=== PATIENT | male | born 1955 | race Caucasian/White ===

== ENCOUNTER 2019-09-15 12:51 | Observation (INO) | payer BC ==
[2019-09-15] MEDS ORDERED: Sodium Chloride 0.9% 500 ML IV SCH (13:00)
[2019-09-15] MEDS ORDERED: Sodium Chloride 0.9% 10 ML SDV IV PRN ×2 (13:00→16:02)
[2019-09-15] MEDS ORDERED: Sodium Chloride 0.9% 10 ML Syringe FLUSH PRN (13:00)
[2019-09-15] MEDS ORDERED: Sodium Chloride 0.9% 2.5 ML Syringe FLUSH PRN ×2 (13:00→16:00)
--- NOTE | 2019-09-15 13:07 | EDM.PDOC ---
ED HPI GENERAL MEDICAL PROBLEM - General Chief Complaint: Neuro Symptoms/Deficits Stated Complaint: FUZZY VISION IN RT EYE, UNABLE TO REMEBER NAMES Time Seen by Provider: 09/15/19 12:59 - History of Present Illness INITIAL COMMENTS - FREE TEXT/NARRATIVE: History of present illness: 64-year-old male presenting with memory finding difficulties since around 11:30 AM. The patient reports he was at [employer] and he was feeling fine, when around 1130 or so he noticed a blurring/abnormal visual appearance in the right upper corner of his visual tao. He noticed it got better when he closed his right eye and his vision was normal on the left eye. However when he closed his left eye he did notice the blurred vision on the right side when looking out of his right eye. He also realized that he could not remember some important facts, including his and son's names. He knows what day it is, he knew he was at [employer], and he did not notice any difficulty forming words, difficulty moving arms or legs or standing and walking, nor any numbness or tingling in any extremity or in his face. No difficulty breathing or chest pain. Report that he had a CT scan sometime in the last week or 2 as ordered by his primary care physician, however he cannot recall why although he thinks there was some kind of neurologic type symptom as it was a CT brain. Feels that he is mostly but not completely back to normal. Still has some difficulty with remembering people's names. After discussion with his here, she reports that about a week ago he had an abnormal numbness sensation which is why his physician performed a CT scan. Review of systems: As per history of present illness and below otherwise all systems reviewed and negative. Past medical history: As per history of present illness and as reviewed below otherwise noncontributory. Surgical history: As per history of present illness and as reviewed below otherwise noncontributory. Social history: No reported history of drug or alcohol abuse. Family history: As per history of present illness and as reviewed below otherwise noncontributory. Physical exam: GEN: no acute distress, well appearing HEENT: Atraumatic, normocephalic, mucous membranes moist, Neck: supple, nontender, trachea midline. Lungs: No respiratory distress. Heart: RRR Abdomen: Soft, nondistended, nontender. Back: nontender Extremities: Atraumatic. Neurovascularly intact. Neuro: Awake, alert, oriented. Neuro Exam nonfocal. Able to move all extremities without difficulty. No drift in all 4 extremities. No difficulty forming words. No dysarthria or aphasia. Orientation x3. Patient does notice some difficulty with memory, including that he remembers having a CT but cannot recall for what. However he is able to recall his and children's names, which he had trouble recalling before. No ataxia. NIH stroke scale equals 0. Skin: warm, dry, no lesions Psych: Normal mood and affect, no anxiety or depression Diagnostics: [] Therapeutics: [] MDM: Stroke code initiated on exam however based on patient's current symptoms and current stroke scale of 0, TPA would not be indicated at this time. CT brain with no acute findings. Lab work largely unremarkable. Suspect TIA and this is this patient's second episode in the last 2 to 3 weeks. Recommended admission/observation for further TIA work-up/stroke risk stratification. Aspirin given here. Discussed with hospitalist, Dr. Miner who agrees and accepts patient for admission. Impression: [] Plan: [] Definitive disposition and diagnosis as appropriate pending reevaluation and review of above. - Related Data Allergies Allergy/AdvReac Type Severity Reaction Status Date / Time No Known Allergies Allergy Verified 09/15/19 15:43 Home Meds: Home Meds . [No Known Home Meds] 02/05/15 [History] Past Medical History Other Cardiovascular History: Hypertriglyceridemia Other Musculoskeletal History: hx: fractured wrists ED ROS GENERAL - Review of Systems Review Of Systems: See Below (See dictation) ED EXAM, NEURO - Physical Exam Exam: See Below (See dictation) *Q Meaningful Use (ADM) - VTE Risk Assess *Q Each Risk Factor Represents 1 Point: None Total Score 1 Point Risk Factors: 0 Each Risk Factor Represents 2 Points: Age 60 - 74 Years Total Score 2 Point Risk Factors: 2 Course - Vital Signs Last Recorded V/S: Last Vital Signs Temp 98.3 F 09/15/19 16:06 Pulse 61 09/15/19 16:06 Resp 16 09/15/19 16:06 BP 168/85 H 09/15/19 16:06 Pulse Ox 98 09/15/19 16:06 - Orders/Labs/Meds Orders: Active Orders 24 hr Category Date Time Status Assess Neurological Status [RC] CONTINUOUS Care 09/15/19 13:00 Inactive Cardiac Monitoring [RC] CONTINUOUS Care 09/15/19 13:00 Inactive Communication Order [RC] STAT Care 09/15/19 13:00 Inactive Height and Weight [RC] UPON Care 09/15/19 13:00 Inactive NIH Stroke Scale [RC] Q15M Care 09/15/19 13:00 Inactive Nursing Bedside Swallow Screen [RC] STAT Care 09/15/19 13:00 Inactive Oxygen Therapy, ED [RC] ASDIRECTED Care 09/15/19 13:00 Inactive Resuscitation Status Stat Resus Stat 09/15/19 13:00 Ordered Medication Orders Sodium Chloride (Saline Flush) 2.5 ml FLUSH ASDIRECTED PRN PRN Reason: Keep Vein Open Sodium Chloride (Normal Saline) 10 ml IV ASDIRECTED PRN PRN Reason: IV Use Labs: Laboratory Tests 09/15/19 09/15/19 09/15/19 Range/Units 12:57 12:57 12:57 WBC 7.42 (4.0-11.0) K/uL RBC 6.27 H (4.50-5.90) M/uL Hgb 19.2 H (13.0-17.0) g/dL Hct 54.9 H (38.0-50.0) % MCV 87.6 (80.0-98.0) fL MCH 30.6 (27.0-32.0) pg MCHC 35.0 (31.0-37.0) g/dL RDW Std Deviation 43.7 (28.0-62.0) fl RDW Coeff of Fabienne 14 (11.0-15.0) % Plt Count 229 (150-400) K/uL MPV 9.10 (7.40-12.00) fL Neut % (Auto) 63.0 (48.0-80.0) % Lymph % (Auto) 25.3 (16.0-40.0) % Moore % (Auto) 8.6 (0.0-15.0) % Eos % (Auto) 2.7 (0.0-7.0) % Baso % (Auto) 0.4 (0.0-1.5) % Neut # (Auto) 4.7 (1.4-5.7) K/uL Lymph # (Auto) 1.9 (0.6-2.4) K/uL Moore # (Auto) 0.6 (0.0-0.8) K/uL Eos # (Auto) 0.2 (0.0-0.7) K/uL Baso # (Auto) 0.0 (0.0-0.1) K/uL Nucleated RBC % 0.0 /100WBC Nucleated RBCs # 0 K/uL INR 0.97 APTT 27.7 (18.6-31.3) SEC Sodium 139 (136-148) mmol/L Potassium 4.6 (3.5-5.1) mmol/L Chloride 101 (98-107) mmol/L Carbon Dioxide 30.0 (21.0-32.0) mmol/L BUN 15 (7.0-18.0) mg/dL Creatinine 1.3 (0.8-1.3) mg/dL Est Cr Clr Drug Dosing 57.41 mL/min Estimated GFR (MDRD) 55.6 ml/min Glucose 98 (74-106) mg/dL POC Glucose (60-110) mg/dL Calcium 9.5 (8.5-10.1) mg/dL Total Bilirubin 0.5 (0.2-1.0) mg/dL AST 19 (15-37) IU/L ALT 38 (14-63) IU/L Alkaline Phosphatase 71 (46-116) U/L Troponin I < 0.050 (0.000-0.056) ng/mL Total Protein 7.4 (6.4-8.2) g/dL Albumin 4.2 (3.4-5.0) g/dL Globulin 3.2 (2.6-4.0) g/dL Albumin/Globulin Ratio 1.3 (0.9-1.6) 09/15/19 Range/Units 12:59 WBC (4.0-11.0) K/uL RBC (4.50-5.90) M/uL Hgb (13.0-17.0) g/dL Hct (38.0-50.0) % MCV (80.0-98.0) fL MCH (27.0-32.0) pg MCHC (31.0-37.0) g/dL RDW Std Deviation (28.0-62.0) fl RDW Coeff of Fabienne (11.0-15.0) % Plt Count (150-400) K/uL MPV (7.40-12.00) fL Neut % (Auto) (48.0-80.0) % Lymph % (Auto) (16.0-40.0) % Moore % (Auto) (0.0-15.0) % Eos % (Auto) (0.0-7.0) % Baso % (Auto) (0.0-1.5) % Neut # (Auto) (1.4-5.7) K/uL Lymph # (Auto) (0.6-2.4) K/uL Moore # (Auto) (0.0-0.8) K/uL Eos # (Auto) (0.0-0.7) K/uL Baso # (Auto) (0.0-0.1) K/uL Nucleated RBC % /100WBC Nucleated RBCs # K/uL INR APTT (18.6-31.3) SEC Sodium (136-148) mmol/L Potassium (3.5-5.1) mmol/L Chloride (98-107) mmol/L Carbon Dioxide (21.0-32.0) mmol/L BUN (7.0-18.0) mg/dL Creatinine (0.8-1.3) mg/dL Est Cr Clr Drug Dosing mL/min Estimated GFR (MDRD) ml/min Glucose (74-106) mg/dL POC Glucose 90 (60-110) mg/dL Calcium (8.5-10.1) mg/dL Total Bilirubin (0.2-1.0) mg/dL AST (15-37) IU/L ALT (14-63) IU/L Alkaline Phosphatase (46-116) U/L Troponin I (0.000-0.056) ng/mL Total Protein (6.4-8.2) g/dL Albumin (3.4-5.0) g/dL Globulin (2.6-4.0) g/dL Albumin/Globulin Ratio (0.9-1.6) Meds: Medications Generic Name Dose Route Start Last Admin Trade Name Freq PRN Reason Stop Dose Admin Sodium Chloride 2.5 ml 09/15/19 16:00 Saline Flush FLUSH ASDIRECTED PRN Keep Vein Open Sodium Chloride 10 ml 09/15/19 16:02 Normal Saline IV ASDIRECTED PRN IV Use Discontinued Medications Generic Name Dose Route Start Last Admin Trade Name Vamsi BRADLEY Reason Stop Dose Admin Aspirin 324 mg 09/15/19 14:53 09/15/19 15:36 Aspirin PO 09/15/19 14:54 324 mg ONETIME ONE Administration Sodium Chloride 500 mls @ 250 mls/hr 09/15/19 13:00 09/15/19 13:09 Normal Saline IV 250 mls/hr BOLUS SANDOR Administration Sodium Chloride 10 ml 09/15/19 13:00 09/15/19 13:09 Saline Flush FLUSH 10 ml ASDIRECTED PRN Administration Keep Vein Open Sodium Chloride 2.5 ml 09/15/19 13:00 09/15/19 13:09 Saline Flush FLUSH 2.5 ml ASDIRECTED PRN Administration Keep Vein Open Sodium Chloride 10 ml 09/15/19 13:00 09/15/19 13:09 Normal Saline IV 10 ml ASDIRECTED PRN Administration IV Use - Re-Assessments/Exams Free Text/Narrative Re-Assessment/Exam: 09/15/19 13:15 When I reevaluated the patient about 1:15 PM, he reported that he felt like he could now remember names and was not having any difficulty speaking. The visual blurriness lasted only transiently around 1130 and has not recurred since. His symptoms are essentially resolved at this time. I discussed with the patient recommendation for admission to the hospital for further work-up including evaluation for likely TIAs as this is a second event in the last 2 to 3 weeks. He agrees with this plan. 09/15/19 15:00 DR Miner called back, case was discussed and he agrees and accepts the patient for admission. Will place in observation. Departure - Departure Time of Disposition: 14:59 Disposition: Refer to Observation Clinical Impression: TIA (transient ischemic attack) - Discharge Information Sepsis Event Note (ED) - Focused Exam Vital Signs: Vital Signs Temp Pulse Resp BP Pulse Ox 09/15/19 14:45 61 16 155/99 H 98 09/15/19 14:30 61 16 156/97 H 98 09/15/19 14:15 64 158/101 H 94 L 09/15/19 14:00 59 L 18 153/91 H 96 09/15/19 13:45 59 L 16 160/97 H 96 09/15/19 13:30 64 16 155/90 H 98 09/15/19 13:15 97.2 F 62 16 153/84 H 95 09/15/19 13:00 66 18 167/101 H 96 - My Orders Last 24 Hours: My Active Orders 09/15/19 13:00 Assess Neurological Status [RC] CONTINUOUS Cardiac Monitoring [RC] CONTINUOUS Communication Order [RC] STAT Height and Weight [RC] UPON NIH Stroke Scale [RC] Q15M Nursing Bedside Swallow Screen [RC] STAT Oxygen Therapy, ED [RC] ASDIRECTED Resuscitation Status Stat - Assessment/Plan Last 24 Hours: My Active Orders 09/15/19 13:00 Assess Neurological Status [RC] CONTINUOUS Cardiac Monitoring [RC] CONTINUOUS Communication Order [RC] STAT Height and Weight [RC] UPON NIH Stroke Scale [RC] Q15M Nursing Bedside Swallow Screen [RC] STAT Oxygen Therapy, ED [RC] ASDIRECTED Resuscitation Status Stat
--- NOTE | 2019-09-15 13:30 | CT ---
Head CT Technique: Multiple axial sections through the brain were obtained. Intravenous contrast was not utilized. Comparison: Prior noncontrast head CT study of 09/10/19. Findings: Ventricles along with basal cisterns and sulci over the convexities are within normal limits for the patient's age. No abnormal parenchymal densities are seen. No evidence of intracranial hemorrhage. No midline shift or mass effect is seen. Bone window settings were reviewed. No acute calvarial abnormality is appreciated. Visualized paranasal sinuses and mastoid sinuses show nothing acute. Impression: 1. No abnormality is identified on noncontrast head CT study. Note: Consider MRI to further evaluate. Diagnostic code #1 This report was dictated in MDT
[2019-09-15 13:31] LABS: BLOOD UREA NITROGEN,BUN 15 mg/dL (7.0-18.0); CHLORIDE,CL 101 mmol/L (98-107); GLUCOSE RANDOM 98 mg/dL (74-106); POTASSIUM,K 4.6 mmol/L (3.5-5.1); SODIUM,NA 139 mmol/L (136-148)
[2019-09-15] MEDS ORDERED: Aspirin 81 MG Tab.Chew PO ONE (14:53)
--- NOTE | 2019-09-15 22:28 | PCM.HP.2 ---
H&P History of Present Illness - General Date of Service: 09/15/19 Admit Problem/Dx: Admission Diagnosis/Problem Admission Diagnosis/Problem TIA, Transient ischemic attack - History of Present Illness Initial Comments - Free Text/Narative: 64 yo male who no significant past medical history who while at [employer] he was not able to recall names of people. He had no other memory problems. He was unable to recall his wifes name although he new who she was. This last the [employer] service. He had no slurred speech, facial droop or muscle weakness. Patient reports three weeks ago havign several minute episode of dizziness where he felt he was leaning to the right. In the ED he had a CT scan which did not show any acute findings. - Related Data Allergies/Adverse Reactions: Allergies Allergy/AdvReac Type Severity Reaction Status Date / Time No Known Allergies Allergy Verified 09/15/19 15:43 Home Medications: Home Meds Aspirin 81 mg PO DAILY #30 tab.chew 09/16/19 [Rx] atorvaSTATin [Lipitor] 40 mg PO BEDTIME #30 tablet 09/16/19 [Rx] Past Medical History - Past Health History Medical/Surgical History: Denies Medical/Surgical History HEENT History: Reports: Impaired Vision Other Cardiovascular History: Hypertriglyceridemia Other Musculoskeletal History: hx: fractured wrists - Infectious Disease History Infectious Disease History: Reports: None - Past Surgical History HEENT Surgical History: Reports: None Cardiovascular Surgical History: Reports: None GI Surgical History: Reports: Appendectomy Social & Family History - Family History Family Medical History: Noncontributory - Tobacco Use Smoking Status *Q: Never Smoker - Caffeine Use Caffeine Use: Reports: Coffee, Soda - Recreational Drug Use Recreational Drug Use: No H&P Review of Systems - Review of Systems: Review Of Systems: See Below Exam - Exam Exam: See Below - Vital Signs Vital Signs: Last Vital Signs Temp 36.5 C 09/15/19 19:25 Pulse 62 09/15/19 19:25 Resp 16 09/15/19 19:25 BP 146/82 H 09/15/19 19:25 Pulse Ox 97 09/15/19 19:25 Weight: 79.515 kg - Exam General: Alert, Oriented HEENT: Mucosa Moist & [place] Neck: Supple, Trachea Midline Lungs: Clear to Auscultation, Normal Respiratory Effort Cardiovascular: Regular Rate, Regular Rhythm GI/Abdominal Exam: Normal Bowel Sounds, Soft, Non-Tender Extremities: Normal Inspection, Normal Range of Motion, Non-Tender, No Pedal Edema Skin: Warm, Dry, Intact Neurological: Cranial Nerves Intact, Reflexes Equal Bilateral, Strength Equal Bilateral, Normal Gait, Normal Speech, Normal Tone, Sensation Intact Psychiatric: Alert, Normal Affect, Normal Mood - Patient Data Lab Results Last 24 hrs: Laboratory Results - last 24 hr 09/15/19 09/15/19 09/15/19 Range/Units 12:57 12:57 12:57 WBC 7.42 (4.0-11.0) K/uL RBC 6.27 H (4.50-5.90) M/uL Hgb 19.2 H (13.0-17.0) g/dL Hct 54.9 H (38.0-50.0) % MCV 87.6 (80.0-98.0) fL MCH 30.6 (27.0-32.0) pg MCHC 35.0 (31.0-37.0) g/dL RDW Std Deviation 43.7 (28.0-62.0) fl RDW Coeff of Fabienne 14 (11.0-15.0) % Plt Count 229 (150-400) K/uL MPV 9.10 (7.40-12.00) fL Neut % (Auto) 63.0 (48.0-80.0) % Lymph % (Auto) 25.3 (16.0-40.0) % [place]iwether % (Auto) 8.6 (0.0-15.0) % Eos % (Auto) 2.7 (0.0-7.0) % Baso % (Auto) 0.4 (0.0-1.5) % Neut # (Auto) 4.7 (1.4-5.7) K/uL Lymph # (Auto) 1.9 (0.6-2.4) K/uL [place]ether # (Auto) 0.6 (0.0-0.8) K/uL Eos # (Auto) 0.2 (0.0-0.7) K/uL Baso # (Auto) 0.0 (0.0-0.1) K/uL Nucleated RBC % 0.0 /100WBC Nucleated RBCs # 0 K/uL INR 0.97 APTT 27.7 (18.6-31.3) SEC Sodium 139 (136-148) mmol/L Potassium 4.6 (3.5-5.1) mmol/L Chloride 101 (98-107) mmol/L Carbon Dioxide 30.0 (21.0-32.0) mmol/L BUN 15 (7.0-18.0) mg/dL Creatinine 1.3 (0.8-1.3) mg/dL Est Cr Clr Drug Dosing 57.41 mL/min Estimated GFR (MDRD) 55.6 ml/min Glucose 98 (74-106) mg/dL POC Glucose (60-110) mg/dL Calcium 9.5 (8.5-10.1) mg/dL Total Bilirubin 0.5 (0.2-1.0) mg/dL AST 19 (15-37) IU/L ALT 38 (14-63) IU/L Alkaline Phosphatase 71 (46-116) U/L Troponin I < 0.050 (0.000-0.056) ng/mL Total Protein 7.4 (6.4-8.2) g/dL Albumin 4.2 (3.4-5.0) g/dL Globulin 3.2 (2.6-4.0) g/dL Albumin/Globulin Ratio 1.3 (0.9-1.6) 09/15/19 Range/Units 12:59 WBC (4.0-11.0) K/uL RBC (4.50-5.90) M/uL Hgb (13.0-17.0) g/dL Hct (38.0-50.0) % MCV (80.0-98.0) fL MCH (27.0-32.0) pg MCHC (31.0-37.0) g/dL RDW Std Deviation (28.0-62.0) fl RDW Coeff of Fabienne (11.0-15.0) % Plt Count (150-400) K/uL MPV (7.40-12.00) fL Neut % (Auto) (48.0-80.0) % Lymph % (Auto) (16.0-40.0) % [place]iwether % (Auto) (0.0-15.0) % Eos % (Auto) (0.0-7.0) % Baso % (Auto) (0.0-1.5) % Neut # (Auto) (1.4-5.7) K/uL Lymph # (Auto) (0.6-2.4) K/uL [place]iwether # (Auto) (0.0-0.8) K/uL Eos # (Auto) (0.0-0.7) K/uL Baso # (Auto) (0.0-0.1) K/uL Nucleated RBC % /100WBC Nucleated RBCs # K/uL INR APTT (18.6-31.3) SEC Sodium (136-148) mmol/L Potassium (3.5-5.1) mmol/L Chloride (98-107) mmol/L Carbon Dioxide (21.0-32.0) mmol/L BUN (7.0-18.0) mg/dL Creatinine (0.8-1.3) mg/dL Est Cr Clr Drug Dosing mL/min Estimated GFR (MDRD) ml/min Glucose (74-106) mg/dL POC Glucose 90 (60-110) mg/dL Calcium (8.5-10.1) mg/dL Total Bilirubin (0.2-1.0) mg/dL AST (15-37) IU/L ALT (14-63) IU/L Alkaline Phosphatase (46-116) U/L Troponin I (0.000-0.056) ng/mL Total Protein (6.4-8.2) g/dL Albumin (3.4-5.0) g/dL Globulin (2.6-4.0) g/dL Albumin/Globulin Ratio (0.9-1.6) Result Diagrams: 09/16/19 05:55 09/16/19 05:55 Sepsis Event Note - Evaluation Sepsis Screening Result: No Definite Risk - Focused Exam Vital Signs: Vital Signs Temp Pulse Resp BP Pulse Ox 09/15/19 19:25 36.5 C 62 16 146/82 H 97 09/15/19 16:06 36.8 C 61 16 168/85 H 98 09/15/19 14:45 61 16 155/99 H 98 09/15/19 14:30 61 16 156/97 H 98 09/15/19 14:15 64 158/101 H 94 L 09/15/19 14:00 59 L 18 153/91 H 96 09/15/19 13:45 59 L 16 160/97 H 96 09/15/19 13:30 64 16 155/90 H 98 09/15/19 13:15 36.2 C 62 16 153/84 H 95 09/15/19 13:00 66 18 167/101 H 96 Date Exam was Performed: 09/16/19 Time Exam was Performed: 20:01 *Q Meaningful Use (ADM) - VTE *Q VTE Mechanical Contraindications *Q: At Risk for Falls Problem List Initiated/Reviewed/Updated: Yes Orders Last 24hrs: Active Orders 24 hr Category Date Time Status Admission Status [Patient Status] [ADT] Stat ADT 09/15/19 14:54 Active Assess Neurological Status [RC] CONTINUOUS Care 09/15/19 13:00 Inactive Cardiac Monitoring [RC] CONTINUOUS Care 09/15/19 13:00 Inactive Communication Order [RC] STAT Care 09/15/19 13:00 Inactive Height and Weight [RC] UPON Care 09/15/19 13:00 Inactive Intake and Output [RC] Q12H Care 09/16/19 04:00 Active NIH Stroke Scale [RC] Q15M Care 09/15/19 13:00 Inactive NIH Stroke Scale [RC] Q4H Care 09/15/19 20:00 Active Nursing Bedside Swallow Screen [RC] STAT Care 09/15/19 13:00 Inactive Oxygen Therapy, ED [RC] ASDIRECTED Care 09/15/19 13:00 Inactive Telemetry Monitoring [Cardiac Monitoring] [RC] . Care 09/15/19 15:59 Active DIRECTED Vital Signs [RC] Q4H Care 09/15/19 16:00 Active Regular Diet [DIET] Diet 09/15/19 Dinner Active Ang Head wo Cont [MR] Routine Exams 09/15/19 22:15 Ordered Brain w wo Cont [MR] Routine Exams 09/15/19 22:15 Ordered Echo Comp wo Cont [US] Routine Exams 09/15/19 22:15 Ordered MRA Neck Without Contrast [Ang Neck wo Cont] [MR] Exams 09/15/19 22:15 Ordered Routine BASIC METABOLIC PANEL,BMP [CHEM] AM Lab 09/16/19 05:11 Ordered CBC WITH AUTO DIFF [HEME] AM Lab 09/16/19 05:11 Ordered GLYCOSYLATED HEMOGLOBIN,HGBA1C [CHEM] AM Lab 09/16/19 05:11 Ordered LIPID PANEL [CHEM] AM Lab 09/16/19 05:11 Ordered Sodium Chloride 0.9% [Normal Saline] Med 09/15/19 16:02 Active 10 ml IV ASDIRECTED PRN Sodium Chloride 0.9% [Saline Flush] Med 09/15/19 16:00 Active 2.5 ml FLUSH ASDIRECTED PRN Peripheral IV Insertion Adult [OM.PC] Routine Oth 09/15/19 16:02 Ordered Saline Lock Insert [OM.PC] Routine Oth 09/15/19 16:00 Ordered Resuscitation Status Stat Resus Stat 09/15/19 13:00 Ordered Medication Orders Sodium Chloride (Saline Flush) 2.5 ml FLUSH ASDIRECTED PRN PRN Reason: Keep Vein Open Sodium Chloride (Normal Saline) 10 ml IV ASDIRECTED PRN PRN Reason: IV Use Assessment/Plan Comment:: 64 yo male admitted due to concerns of TIA. We will monitor overnight on telemetry. MRI/MRA of brain ordered.
[2019-09-16 06:41] LABS: HEMOGLOBIN A1C 5.2 % (4.5-6.2)
[2019-09-16 06:47] LABS: BLOOD UREA NITROGEN,BUN 14 mg/dL (7.0-18.0); CARBON DIOXIDE,CO2 30.3 mmol/L (21.0-32.0); CHLORIDE,CL 103 mmol/L (98-107); GLUCOSE RANDOM 97 mg/dL (74-106); POTASSIUM,K 4.8 mmol/L (3.5-5.1); SODIUM,NA 140 mmol/L (136-148)
[2019-09-16] MEDS ORDERED: Gadobenate Dimeglumine 529 MG/ML 20 ML SDV IVPUSH STA (08:12)
--- NOTE | 2019-09-16 09:17 | MR ---
MRI brain (without and with intravenous contrast) Comparison: Prior head CT studies of 09/15/19 and 09/10/19. Findings: Ventricles along with basal cisterns and sulci over the convexities appear within normal limits for the patient's age. Several minimal areas of increased signal noted within the subcortical white matter. No other abnormal signal is seen within the brain parenchyma. No acute diffusion abnormalities are appreciated. No abnormal enhancement is seen within the brain parenchyma. Impression: 1. Several minimal areas of increased signal within the subcortical white matter believed to be within normal limits for the patient's age. 2. No additional abnormality is appreciated on MRI study of the brain. No acute diffusion abnormalities or abnormal enhancement is seen. Diagnostic code #2 Study was dictated in MDT
--- NOTE | 2019-09-16 09:37 | MR ---
MR angiogram of brain Technique: [id number] MRA angiogram study was obtained centered to the [place]. Multiple MIP images were obtained in multiple projections. Comparison: No prior intracranial vascular imaging is available. Findings: Distal vertebral arteries and basilar artery appear patent. Distal internal carotid arteries are patent. Anterior, middle and posterior cerebral arteries are patent. No focal areas of stenosis or occlusion are seen. No discrete aneurysm is noted. Impression: 1. No abnormality is identified on MR angiogram study of the brain centered to the [place]. Diagnostic code #1 Study was dictated in MDT
--- NOTE | 2019-09-16 09:37 | MR ---
MR angiogram of neck Technique: Phase contrast MR angiogram study was obtained to the neck. Intravenous contrast was then given and multiple minute images then obtained of the neck vessels. Findings: Common carotid arteries are well seen and show no focal stenosis. Both vertebral arteries are patent into the basilar artery. Internal carotid arteries are patent into the middle and anterior cerebral arteries. Proximal external carotid arteries are patent. Brachiocephalic and subclavian arteries are patent. Impression: 1. No abnormality is identified on MR angiogram study of the neck. No hemodynamic significant stenosis is seen. Diagnostic code #1 This report was dictated in MDT
[2019-09-16] MEDS ORDERED: Aspirin 81 MG Tab.Chew PO SCH (10:00)
[2019-09-16 10:03] VITALS: BP 143/90; PULSE 73
--- NOTE | 2019-09-16 12:11 | PCM.DCSUM1 ---
Discharge Summary - Hospital Course Brief History: 64 yo male who no significant past medical history who while at [employer] he was not able to recall names of people. He had no other memory problems. He was unable to recall his wifes name although he new who she was. This last the [employer] service. He had no slurred speech, facial droop or muscle weakness. Patient reports three weeks ago havign several minute episode of dizziness where he felt he was leaning to the right. In the ED he had a CT scan which did not show any acute findings. Diagnosis: Stroke: No - Discharge Data Discharge Date: 09/16/19 Discharge Disposition: Home, Self-Care 01 Condition: Good - Referral to Home Health Primary Care Physician: Palomo Stewart MD - Discharge Diagnosis/Problem(s) (1) TIA (transient ischemic attack) SNOMED Code(s): 639016892 ICD Code: G45.9 - TRANSIENT CEREBRAL ISCHEMIC ATTACK, UNSPECIFIED Status: Acute - Patient Summary/Data Hospital Course: Admission diagnoses: TIA Discharge Diagnoses: TIA Larry was admitted secondary to concern for TIA. MRI head and MRA head and neck obtained, which were negative. A1c WNL, lipid panel revealed LDL 107, Total cholesterol 175, HDL 32 and Triglycerides 179. He was treated with ASA and monitored on telemetry. No acute ischemic changes or arrhythmias noted during observation. ECHO pending. He will be started on ASA daily along with Atorvastatin 40 mg daily. He was counseled on statin therapy and side effects to monitor for. He will be sent home with ZIO patch for arrhythmia monitoring. he will have follow up with PCP as well as Dr Méndez was outpatient. he is to return to ED or clinic if concerns should arise. Counseled on Heart healthy/ DASH diet. He was counseled to monitor BP at home and return if symptoms return. - Patient Instructions Diet: Heart Healthy Diet Activity: As Tolerated, No Strenuous Activities Showering/Bathing: May Shower Notify Provider of: Fever, Increased Pain, Swelling and Redness, Drainage, Nausea and/or Vomiting Other/Special Instructions: Monitor blood pressure at home every few days. Keep log and bring to Dr Stewart appointment as well as Neurology. - Discharge Plan *PRESCRIPTION DRUG MONITORING PROGRAM REVIEWED*: Not Applicable *COPY OF PRESCRIPTION DRUG MONITORING REPORT IN PATIENT DONAVAN: Not Applicable Prescriptions/Med Rec: Aspirin 81 mg PO DAILY #30 tab.chew atorvaSTATin [Lipitor] 40 mg PO BEDTIME #30 tablet Home Medications: Home Meds Aspirin 81 mg PO DAILY #30 tab.chew 09/16/19 [Rx] atorvaSTATin [Lipitor] 40 mg PO BEDTIME #30 tablet 09/16/19 [Rx] Oxygen Therapy Mode: Room Air Patient Handouts: Transient Ischemic Attack, [id number], Atorvastatin tablets , Aspirin, ASA oral tablets Referrals: Yumiko Méndez MD [Physician] - 10/01/19 3:00 pm (Arrive 15 minutes early with a photo ID, insurance card, and a mask if you have one. ) Palomo Stewart MD [Primary Care Provider] - 09/23/19 1:30 pm (Arrive 15 minutes early with a photo ID, insurance card and a mask if you have one) - Discharge Summary/Plan Comment DC Time >30 min.: No - Patient Data Vitals - Most Recent: Last Vital Signs Temp 97.5 F 09/16/19 09:15 Pulse 73 09/16/19 09:15 Resp 18 09/16/19 09:15 BP 143/90 H 09/16/19 09:15 Pulse Ox 97 09/16/19 09:15 Weight - Most Recent: 79.515 kg I&O - Last 24 hours: Intake & Output 09/15/19 09/16/19 09/16/19 22:59 06:59 14:59 Intake Total 800 Output Total 1300 Balance -500 Lab Results - Last 24 hrs: Laboratory Results - last 24 hr 09/15/19 09/15/19 09/15/19 Range/Units 12:57 12:57 12:57 WBC 7.42 (4.0-11.0) K/uL RBC 6.27 H (4.50-5.90) M/uL Hgb 19.2 H (13.0-17.0) g/dL Hct 54.9 H (38.0-50.0) % MCV 87.6 (80.0-98.0) fL MCH 30.6 (27.0-32.0) pg MCHC 35.0 (31.0-37.0) g/dL RDW Std Deviation 43.7 (28.0-62.0) fl RDW Coeff of Fabienne 14 (11.0-15.0) % Plt Count 229 (150-400) K/uL MPV 9.10 (7.40-12.00) fL Neut % (Auto) 63.0 (48.0-80.0) % Lymph % (Auto) 25.3 (16.0-40.0) % [place] % (Auto) 8.6 (0.0-15.0) % Eos % (Auto) 2.7 (0.0-7.0) % Baso % (Auto) 0.4 (0.0-1.5) % Neut # (Auto) 4.7 (1.4-5.7) K/uL Lymph # (Auto) 1.9 (0.6-2.4) K/uL [place] # (Auto) 0.6 (0.0-0.8) K/uL Eos # (Auto) 0.2 (0.0-0.7) K/uL Baso # (Auto) 0.0 (0.0-0.1) K/uL Nucleated RBC % 0.0 /100WBC Nucleated RBCs # 0 K/uL INR 0.97 APTT 27.7 (18.6-31.3) SEC Sodium 139 (136-148) mmol/L Potassium 4.6 (3.5-5.1) mmol/L Chloride 101 (98-107) mmol/L Carbon Dioxide 30.0 (21.0-32.0) mmol/L BUN 15 (7.0-18.0) mg/dL Creatinine 1.3 (0.8-1.3) mg/dL Est Cr Clr Drug Dosing 57.41 mL/min Estimated GFR (MDRD) 55.6 ml/min Glucose 98 (74-106) mg/dL POC Glucose (60-110) mg/dL Hemoglobin A1c (4.5-6.2) % Calcium 9.5 (8.5-10.1) mg/dL Total Bilirubin 0.5 (0.2-1.0) mg/dL AST 19 (15-37) IU/L ALT 38 (14-63) IU/L Alkaline Phosphatase 71 (46-116) U/L Troponin I < 0.050 (0.000-0.056) ng/mL Total Protein 7.4 (6.4-8.2) g/dL Albumin 4.2 (3.4-5.0) g/dL Globulin 3.2 (2.6-4.0) g/dL Albumin/Globulin Ratio 1.3 (0.9-1.6) Triglycerides (0-200) mg/dL Cholesterol (50-200) mg/dL LDL Cholesterol, Calc (60-180) mg/dL VLDL Cholesterol (5-55) mg/dL HDL Cholesterol (40-60) mg/dL Cholesterol/HDL Ratio (3.3-6.0) TSH 3rd Generation (0.36-3.74) uIU/mL 09/15/19 09/16/19 09/16/19 Range/Units 12:59 05:55 05:55 WBC 5.59 (4.0-11.0) K/uL RBC 5.97 H (4.50-5.90) M/uL Hgb 18.1 H (13.0-17.0) g/dL Hct 52.3 H (38.0-50.0) % MCV 87.6 (80.0-98.0) fL MCH 30.3 (27.0-32.0) pg MCHC 34.6 (31.0-37.0) g/dL RDW Std Deviation 43.7 (28.0-62.0) fl RDW Coeff of Fabienne 14 (11.0-15.0) % Plt Count 204 (150-400) K/uL MPV 9.00 (7.40-12.00) fL Neut % (Auto) 55.5 (48.0-80.0) % Lymph % (Auto) 29.7 (16.0-40.0) % [place] % (Auto) 9.8 (0.0-15.0) % Eos % (Auto) 4.5 (0.0-7.0) % Baso % (Auto) 0.5 (0.0-1.5) % Neut # (Auto) 3.1 (1.4-5.7) K/uL Lymph # (Auto) 1.7 (0.6-2.4) K/uL [place] # (Auto) 0.6 (0.0-0.8) K/uL Eos # (Auto) 0.3 (0.0-0.7) K/uL Baso # (Auto) 0.0 (0.0-0.1) K/uL Nucleated RBC % 0.0 /100WBC Nucleated RBCs # 0 K/uL INR APTT (18.6-31.3) SEC Sodium 140 (136-148) mmol/L Potassium 4.8 (3.5-5.1) mmol/L Chloride 103 (98-107) mmol/L Carbon Dioxide 30.3 (21.0-32.0) mmol/L BUN 14 (7.0-18.0) mg/dL Creatinine 1.2 (0.8-1.3) mg/dL Est Cr Clr Drug Dosing 62.19 mL/min Estimated GFR (MDRD) > 60.0 ml/min Glucose 97 (74-106) mg/dL POC Glucose 90 (60-110) mg/dL Hemoglobin A1c (4.5-6.2) % Calcium 8.9 (8.5-10.1) mg/dL Total Bilirubin (0.2-1.0) mg/dL AST (15-37) IU/L ALT (14-63) IU/L Alkaline Phosphatase (46-116) U/L Troponin I (0.000-0.056) ng/mL Total Protein (6.4-8.2) g/dL Albumin (3.4-5.0) g/dL Globulin (2.6-4.0) g/dL Albumin/Globulin Ratio (0.9-1.6) Triglycerides 179 (0-200) mg/dL Cholesterol 175 (50-200) mg/dL LDL Cholesterol, Calc 107 (60-180) mg/dL VLDL Cholesterol 35 (5-55) mg/dL HDL Cholesterol 32 L (40-60) mg/dL Cholesterol/HDL Ratio 5.5 (3.3-6.0) TSH 3rd Generation (0.36-3.74) uIU/mL 09/16/19 09/16/19 Range/Units 05:55 05:55 WBC (4.0-11.0) K/uL RBC (4.50-5.90) M/uL Hgb (13.0-17.0) g/dL Hct (38.0-50.0) % MCV (80.0-98.0) fL MCH (27.0-32.0) pg MCHC (31.0-37.0) g/dL RDW Std Deviation (28.0-62.0) fl RDW Coeff of Fabienne (11.0-15.0) % Plt Count (150-400) K/uL MPV (7.40-12.00) fL Neut % (Auto) (48.0-80.0) % Lymph % (Auto) (16.0-40.0) % [place] % (Auto) (0.0-15.0) % Eos % (Auto) (0.0-7.0) % Baso % (Auto) (0.0-1.5) % Neut # (Auto) (1.4-5.7) K/uL Lymph # (Auto) (0.6-2.4) K/uL [place] # (Auto) (0.0-0.8) K/uL Eos # (Auto) (0.0-0.7) K/uL Baso # (Auto) (0.0-0.1) K/uL Nucleated RBC % /100WBC Nucleated RBCs # K/uL INR APTT (18.6-31.3) SEC Sodium (136-148) mmol/L Potassium (3.5-5.1) mmol/L Chloride (98-107) mmol/L Carbon Dioxide (21.0-32.0) mmol/L BUN (7.0-18.0) mg/dL Creatinine (0.8-1.3) mg/dL Est Cr Clr Drug Dosing mL/min Estimated GFR (MDRD) ml/min Glucose (74-106) mg/dL POC Glucose (60-110) mg/dL Hemoglobin A1c 5.2 (4.5-6.2) % Calcium (8.5-10.1) mg/dL Total Bilirubin (0.2-1.0) mg/dL AST (15-37) IU/L ALT (14-63) IU/L Alkaline Phosphatase (46-116) U/L Troponin I (0.000-0.056) ng/mL Total Protein (6.4-8.2) g/dL Albumin (3.4-5.0) g/dL Globulin (2.6-4.0) g/dL Albumin/Globulin Ratio (0.9-1.6) Triglycerides (0-200) mg/dL Cholesterol (50-200) mg/dL LDL Cholesterol, Calc (60-180) mg/dL VLDL Cholesterol (5-55) mg/dL HDL Cholesterol (40-60) mg/dL Cholesterol/HDL Ratio (3.3-6.0) TSH 3rd Generation 1.71 (0.36-3.74) uIU/mL Med Orders - Current: Current Medications Aspirin (Aspirin) 81 mg PO DAILY [facility] Last Admin: 09/16/19 10:19 Dose: 81 mg Atorvastatin Calcium (Lipitor) 40 mg PO BEDTIME [facility] Sodium Chloride (Saline Flush) 2.5 ml FLUSH ASDIRECTED PRN PRN Reason: Keep Vein Open Sodium Chloride (Normal Saline) 10 ml IV ASDIRECTED PRN PRN Reason: IV Use Discontinued Medications Aspirin (Aspirin) 324 mg PO ONETIME ONE Stop: 09/15/19 14:54 Last Admin: 09/15/19 15:36 Dose: 324 mg Gadobenate Dimeglumine (Multihance) 20 ml IVPUSH ONETIME STA Stop: 09/16/19 08:13 Last Admin: 09/16/19 08:25 Dose: 15 ml Sodium Chloride (Normal Saline) 500 mls @ 250 mls/hr IV [facility] Last Admin: 09/15/19 13:09 Dose: 250 mls/hr Sodium Chloride (Saline Flush) 10 ml FLUSH ASDIRECTED PRN PRN Reason: Keep Vein Open Last Admin: 09/15/19 13:09 Dose: 10 ml Sodium Chloride (Saline Flush) 2.5 ml FLUSH ASDIRECTED PRN PRN Reason: Keep Vein Open Last Admin: 09/15/19 13:09 Dose: 2.5 ml Sodium Chloride (Normal Saline) 10 ml IV ASDIRECTED PRN PRN Reason: IV Use Last Admin: 09/15/19 13:09 Dose: 10 ml - Exam General: Reports: Alert, Oriented, Cooperative, No Acute Distress Lungs: Reports: Clear to Auscultation, Normal Respiratory Effort Cardiovascular: Reports: Regular Rate, Regular Rhythm GI/Abdominal Exam: Normal Bowel Sounds, Soft, Non-Tender Extremities: Normal Inspection, Normal Range of Motion, Non-Tender, No Pedal Edema Neurological: Reports: No New Focal Deficit Psy/Mental Status: Reports: Alert, Normal Affect, Normal Mood *Q Meaningful Use (DIS) - VTE *Q VTE Mechanical Contraindications *Q: At Risk for Falls
[2019-09-16] MEDS ORDERED: atorvaSTATin 40 MG Tab PO SCH (21:00)
--- NOTE | 2019-09-17 12:50 | ECHO ---
EXAM DATE: 09/15/19 PATIENT'S AGE: 64 The ECHO report has been scanned into [employer] and can be seen in this patient' s EMR (Electronic Medical Record) under the REPORTS section. The report has also been scanned into PACS. AMINA
== END 2019-09-16 11:20 | disposition home or self-care (01) ==
LOC: MW.ED 12:51 → MW.MS 14:54
PROVIDERS: ADMIT Internal Medicine; ATTEND Internal Medicine
DX: G45.9 Transient cerebral ischemic attack, unspecified (principal); Z79.82 Long term (current) use of aspirin; Z79.899 Other long term (current) drug therapy
CPT/HCPCS: 36415; 70450; 70544; 70549; 70553; 80048; 80053; 80061; 82962; 83036; 84402; 84403; 84443; 84484; 85025; 85610; 85730; 93005; 93306; 99285; A9270; A9577; J7040; J7050

== ENCOUNTER 2020-12-08 11:45 | Emergency (ER) | payer MEDICARE, BC ==
[2020-12-08 12:47] VITALS: PULSE 65
--- NOTE | 2020-12-08 12:54 | EDM.PDOC ---
ED HPI GENERAL MEDICAL PROBLEM - General Chief Complaint: Neuro Symptoms/Deficits Stated Complaint: MEMORY LOSS Time Seen by Provider: 12/08/20 12:46 Source of Information: Reports: Patient History Limitations: Reports: No Limitations - History of Present Illness INITIAL COMMENTS - FREE TEXT/NARRATIVE: 65-year-old male past medical history hypertension, TIA presents for episode of transient memory loss. Patient notes he had a similar episode last September and was diagnosed with possible TIA. He was started on aspirin and another medication which she has since stopped taking, still taking the aspirin. He states that this morning his episode was not as bad as the episode in September but he cannot remember the names of his grandchildren. This lasted less than an hour and now he is neurologically at baseline. Denies ever having any one-sided body weakness, sensory changes, difficulty walking, slurred speech, word finding difficulty other than grandchildren's names. No complaints currently - Related Data Allergies Allergy/AdvReac Type Severity Reaction Status Date / Time No Known Allergies Allergy Verified 12/08/20 12:47 Home Meds: Home Meds Aspirin 81 mg PO DAILY #30 tab.chew 09/16/19 [Rx] atorvaSTATin [Lipitor] 40 mg PO BEDTIME #30 tablet 09/16/19 [Rx] amLODIPine [Norvasc] 5 mg PO DAILY 12/08/20 [History] Past Medical History - Past Health History Medical/Surgical History: Denies Medical/Surgical History HEENT History: Reports: Impaired Vision Other Cardiovascular History: Hypertriglyceridemia Other Musculoskeletal History: hx: fractured wrists Neurological History: Reports: TIA - Infectious Disease History Infectious Disease History: Reports: Shingles - Past Surgical History HEENT Surgical History: Reports: None Cardiovascular Surgical History: Reports: None GI Surgical History: Reports: Appendectomy Social & Family History - Family History Family Medical History: No Pertinent Family History - Tobacco Use Tobacco Use Status *Q: Never Tobacco User - Caffeine Use Caffeine Use: Reports: Coffee, Soda - Recreational Drug Use Recreational Drug Use: No ED ROS GENERAL - Review of Systems Review Of Systems: Comprehensive ROS is negative, except as noted in HPI. ED EXAM, GENERAL - Physical Exam Exam: See Below Exam Limited By: No Limitations General Appearance: Alert, WD/WN, No Apparent Distress Eye Exam: Bilateral Eye: EOMI, PERRL Ears: Hearing Grossly Normal Throat/Mouth: Normal Voice, No Airway Compromise Head: Atraumatic, Normocephalic Neck: Normal Inspection Respiratory/Chest: No Respiratory Distress, Lungs Clear, Normal Breath Sounds, No Accessory Muscle Use Cardiovascular: Normal Peripheral Pulses, Regular Rate, Rhythm Extremities: Normal Inspection Neurological: Alert, Oriented, CN II-XII Intact, Normal Cognition, Normal Gait, No Motor/Sensory Deficits Psychiatric: Normal Affect, Normal Mood Skin Exam: Warm, Dry, Intact, Normal Color Course - Vital Signs Last Recorded V/S: Last Vital Signs Temp 96.8 F L 12/08/20 12:45 Pulse 65 12/08/20 12:45 Resp 18 12/08/20 12:45 BP 116/61 12/08/20 12:45 Pulse Ox 97 12/08/20 12:45 - Orders/Labs/Meds Orders: Active Orders 24 hr Category Date Time Status Saline Lock Insert [OM.PC] Stat Oth 12/08/20 12:53 Ordered Labs: Laboratory Tests 12/08/20 12/08/20 Range/Units 13:40 13:40 WBC 4.16 (4.0-11.0) K/uL RBC 4.94 (4.50-5.90) M/uL Hgb 15.0 (13.0-17.0) g/dL Hct 42.1 (38.0-50.0) % MCV 85.2 (80.0-98.0) fL MCH 30.4 (27.0-32.0) pg MCHC 35.6 (31.0-37.0) g/dL RDW Std Deviation 41.4 (28.0-62.0) fl RDW Coeff of Fabienne 13 (11.0-15.0) % Plt Count 198 (150-400) K/uL MPV 9.10 (7.40-12.00) fL Neut % (Auto) 55.2 (48.0-80.0) % Lymph % (Auto) 33.4 (16.0-40.0) % [place] % (Auto) 8.7 (0.0-15.0) % Eos % (Auto) 2.2 (0.0-7.0) % Baso % (Auto) 0.5 (0.0-1.5) % Neut # (Auto) 2.3 (1.4-5.7) K/uL Lymph # (Auto) 1.4 (0.6-2.4) K/uL [place] # (Auto) 0.4 (0.0-0.8) K/uL Eos # (Auto) 0.1 (0.0-0.7) K/uL Baso # (Auto) 0.0 (0.0-0.1) K/uL Nucleated RBC % 0.0 /100WBC Nucleated RBCs # 0 K/uL Sodium 137 (136-148) mmol/L Potassium 4.1 (3.5-5.1) mmol/L Chloride 104 (98-107) mmol/L Carbon Dioxide 30.2 (21.0-32.0) mmol/L BUN 11 (7.0-18.0) mg/dL Creatinine 1.0 (0.8-1.3) mg/dL Est Cr Clr Drug Dosing 73.65 mL/min Estimated GFR (MDRD) > 60.0 ml/min Glucose 115 H (74-106) mg/dL Calcium 8.7 (8.5-10.1) mg/dL Total Bilirubin 0.5 (0.2-1.0) mg/dL AST 17 (15-37) IU/L ALT 39 (14-63) IU/L Alkaline Phosphatase 72 (46-116) U/L Total Protein 6.6 (6.4-8.2) g/dL Albumin 3.7 (3.4-5.0) g/dL Globulin 2.9 (2.6-4.0) g/dL Albumin/Globulin Ratio 1.3 (0.9-1.6) Meds: Medications Discontinued Medications Generic Name Dose Route Start Last Admin Trade Name Vamsi PRN Reason Stop Dose Admin Iopamidol 100 ml 12/08/20 15:06 12/08/20 15:06 Iopamidol 755 Mg/Ml 500 Ml Multipack Bottle IVPUSH 12/08/20 15:07 100 ml ONETIME STA Administration - Re-Assessments/Exams Free Text/Narrative Re-Assessment/Exam: 12/08/20 12:56 We will get basic labs, head CT, CTA head and neck. 12/08/20 15:37 Labs and imaging unremarkable. I did discuss the case with Dr. Dash neurologist who will call patient for appointment tomorrow. She does not recommend any medication changes or additional work-up at this time. Departure - Departure Time of Disposition: 15:38 Disposition: Home, Self-Care 01 Condition: Good Clinical Impression: Aphasia - Discharge Information Instructions: Aphasia Referrals: Henrry Bee MD [Primary Care Provider] - Forms: ED Department Discharge Additional Instructions: Please follow-up with neurology. Dr. Dash should be calling you tomorrow to help set up an appointment. [facility] [address] [place] [address], [address] [place], [place] [id number] The following information is given to patients seen in the emergency department who are being discharged to home. This information is to outline your options for follow-up care. We provide all patients seen in our emergency department with a follow-up referral. The need for follow-up, as well as the timing and circumstances, are variable depending upon the specifics of your emergency department visit. If you don't have a primary care physician on staff, we will provide you with a referral. We always advise you to contact your personal physician following an emergency department visit to inform them of the circumstance of the visit and for follow-up with them and/or the need for any referrals to a consulting specialist. The emergency department will also refer you to a specialist when appropriate. This referral assures that you have the opportunity for follow-up care with a specialist. All of these measure are taken in an effort to provide you with optimal care, which includes your follow-up. Under all circumstances we always encourage you to contact your private physician who remains a resource for coordinating your care. When calling for follow-up care, please make the office aware that this follow-up is from your recent emergency room visit. If for any reason you are refused follow-up, please contact the [facility] Emergency Department at and asked to speak to the emergency department charge nurse. Please follow up with your primary care physician. If you do not have a primary care physician, see below: [facility] [address] [place] [id number] [facility] [address] [place], [place] [id number] [facility] [address] [place] [id number] Sepsis Event Note (ED) - Evaluation Sepsis Screening Result: No Definite Risk - Focused Exam Vital Signs: Vital Signs Temp Pulse Resp BP Pulse Ox 12/08/20 12:45 96.8 F L 65 18 116/61 97 - My Orders Last 24 Hours: My Active Orders 12/08/20 12:53 Saline Lock Insert [OM.PC] Stat - Assessment/Plan Last 24 Hours: My Active Orders 12/08/20 12:53 Saline Lock Insert [OM.PC] Stat
[2020-12-08 14:30] LABS: BLOOD UREA NITROGEN,BUN 11 mg/dL (7.0-18.0); CARBON DIOXIDE,CO2 30.2 mmol/L (21.0-32.0); CHLORIDE,CL 104 mmol/L (98-107); GLUCOSE RANDOM 115 mg/dL (74-106); POTASSIUM,K 4.1 mmol/L (3.5-5.1); SODIUM,NA 137 mmol/L (136-148)
[2020-12-08] MEDS ORDERED: Iopamidol 755 MG/ML 500 ML Multipack Bottle IVPUSH STA (15:06)
--- NOTE | 2020-12-08 15:27 | CT ---
INDICATION: Transient memory loss, transient ischemic attack. TECHNIQUE: After standard noncontrast head CT, high resolution axial CT images acquired through the head and neck following rapid intravenous administration of iodinated contrast. Multiplanar MIPS of cranial and cervical vasculature performed. FINDINGS: Noncontrast head CT: There is no intracranial hemorrhage or fluid collection. The ray-white matter differentiation is maintained. The ventricles are of normal morphology. The basal cisterns are clear. CTA head: There is normal filling of the intracranial vasculature; i.e. there is no large vessel occlusion or intracranial stenosis. There is no cerebral aneurysm or evidence for vascular malformation. CTA neck: Carotid arteries: There is very minor irregular atherosclerotic plaque in the proximal right ICA without stenosis. There is no evidence for dissection. Vertebral arteries: There is no significant stenosis. There is no evidence for dissection. The soft tissues of the neck are within normal limits. The cervical spine is in normal alignment. Degenerative changes are noted in the cervical spine. The lung apices are clear. IMPRESSION: No acute intracranial abnormality at CT/CTA. Minor atherosclerotic plaque in the proximal right ICA without stenosis. Mook Webber MD Neurointerventional Radiologist [facility] Please note that all CT scans at this facility use dose modulation, iterative reconstruction, and/or weight-based dosing when appropriate to reduce radiation dose to as low as reasonably achievable. Dictated by Mook Webber MD @ 12/08/2020 3:26:23 PM (Electronically Signed)
[2020-12-08 15:55] VITALS: BP 131/62
== END 2020-12-08 15:54 | disposition home or self-care (01) ==
LOC: MW.ED 11:45
DX: R47.01 Aphasia (principal); E78.1 Pure hyperglyceridemia; Z79.82 Long term (current) use of aspirin; Z79.899 Other long term (current) drug therapy
CPT/HCPCS: 36415; 70450; 70496; 70498; 80053; 85025; 99285; Q9967

== ENCOUNTER 2024-09-05 07:15 | Day surgery (SDC) | payer MEDICARE, BC ==
[2024-09-05] MEDS ORDERED: propofoL 500 MG/50 ML 50 ML ONE (07:37)
[2024-09-05] MEDS ORDERED: Sodium Chloride 0.9% 20 ML ONE (07:39)
[2024-09-05] MEDS ORDERED: dexmedeTOMIDine HCl 200 MCG/2 ML SDV ONE (07:39)
[2024-09-05] MEDS: Lactated Ringers 1,000 ML IV SCH (08:25)
[2024-09-05 10:57] VITALS: BP 107/72; PULSE 65
== END 2024-09-05 09:51 | disposition home or self-care (01) ==
LOC: MW.SDS 07:15
PROVIDERS: ATTEND Surgery
DX: Z12.11 Encounter for screening for malignant neoplasm of colon (principal); K31.89 Other diseases of stomach and duodenum; K21.00 Gastro-esophageal reflux disease with esophagitis, without bleeding; K57.30 Diverticulosis of large intestine without perforation or abscess without bleeding; E78.00 Pure hypercholesterolemia, unspecified; I10 Essential (primary) hypertension; Z79.899 Other long term (current) drug therapy
CPT/HCPCS: 43239; 88305; G0121; J2704; J7120; 00813; 45378